=== PATIENT | female | born 1970 | race Caucasian/White ===

== ENCOUNTER 2024-01-25 12:28 | Emergency (ER) | payer OTHER, SELFPAY ==
--- NOTE | ~2024-01-25 | XR_ITS ---
EXAMINATION: XR chest 2V DATE: 01/25/2024 12:54 INDICATION: Cough. Back pain. TECHNIQUE: Frontal and lateral views of the chest were obtained. COMPARISON: None. FINDINGS: There is no pneumonia, pleural effusion, or pneumothorax. The heart size is normal. IMPRESSION: 1. No acute cardiopulmonary disease. Reviewed, dictated and finalized at location A. [employer]
[2024-01-25 12:41] VITALS: BP 132/93; PULSE 100; RESP 20; TEMP 36.7; O2SAT 99
--- NOTE | 2024-01-25 13:21 | ED.URI ---
HPI - URI/Sore Throat General Chief Complaint: Upper Respiratory Infection Stated Complaint: flu symptoms History of Present Illness HPI Narrative: Pt is a 53 y/o female, PMHx of RA, presents to with 10 day hx of URI symptoms that she is certain started with Influenza A, as her family all tested positive the same week. She has taken OTC Dayquil, Nyquil and Sudafed without much relief. She has continued to have fevers off and on, last fever was yesterday. She notes her cough is productive at times, nasal congestion persists but she is not producing much from her nose and she now has pain with coughing in the left flank/posterior chest wall. She became concerned she may be developing pneumonia, prompting her visit. She denies CP, orthopnea, SOB, abdominal pain, NVDC or urinary symptoms. She is not . Related Data Home Medications Medication Instructions Recorded Confirmed folic acid 1 mg tablet See Rx Instructions .Route .COMPLEX 01/25/24 01/25/24 golimumab 100 mg/mL subcutaneous See Rx Instructions .Route .COMPLEX 01/25/24 01/25/24 pen injector (Simponi) tramadol 50 mg tablet See Rx Instructions .Route 01/25/24 01/25/24 .COMPLEX PRN Pain zolpidem 12.5 mg tablet,extended 12.5 mg PO HS 01/25/24 01/25/24 release,multiphase Allergies Allergy/AdvReac Type Severity Reaction Status Date / Time etanercept [From Enbrel] Allergy Hives Verified 01/25/24 12:51 [email or web address] Allergy Hives Verified 01/25/24 12:49 [email or web address] Allergy Hives Verified 01/25/24 12:52 Review of Systems Constitutional: Comments: refer to HPI Respiratory: Comments: refer to HPI Musculoskeletal: Comments: refer to HPI Exam Const: General: healthy appearing, no acute distress and alert Nutritional Appearance: well nourished and obese Orientation/consciousness: patient oriented x3 Limitations: no limitations HENMT: Head: normal to inspection Ears: external ears normal and TM abnormal (TM's retracted bilaterally with serous pattern) Mouth: Yes Normal oral and palatal mucosa present, Yes lip normal and Yes moist mucous membranes Teeth and gingiva: dentition normal Throat: posterior oropharynx normal and uvula midline Eyes: Conjunctivae: conjunctivae normal Pupils: Equal, round and reactive pupils present EOM: EOMs intact bilaterally Direct Ophthalmoscopy: no photophobia Neck: Neck: normal visual inspection, no lymphadenopathy and no meningeal signs Resp: Effort & Inspection: normal respiratory effort Auscultation: clear to auscultation bilaterally Other: pt has harsh coughing, bark like with forced upper airway wheezing during coughing fit upon auscultation. No rales, rhonchi or wheezing otherwise noted Cardio: Rate: regular rate Rhythm: regular rhythm Back/Spine/Pelvis: Back: no CVA tenderness Other: pt has no ttp over the left posterior chest wall but does endorse some soreness to the left periscapular muscles. No crepitus, no subcutaneous emphysema noted Skin: General skin exam: normal color Rashes: no rashes Wounds: no wounds Neuro: General: patient oriented x3, moves all extremities, no meningeal signs, no focal motor deficits and CN's II-XI intact bilaterally Extrem: General: normal to inspection, no clubbing, cyanosis or edema and no pedal edema Course Course Emergency Course: cxr, unremarkable for acute findings. Suspect post viral cough versus early ABRS/bacterial bronchitis. Level of Care: Express Care Visit (43039) Vital Signs Vital signs: Vital Signs Temperature 36.7 C 01/25/24 12:41 Pulse Rate 100 01/25/24 12:41 Respiratory Rate 20 01/25/24 12:41 Blood Pressure 132/93 H 01/25/24 12:41 Pulse Oximetry 99 01/25/24 12:41 Oxygen Delivery Room Air 01/25/24 12:41 Temperature 36.7 C 01/25/24 12:41 Pulse Rate 100 01/25/24 12:41 Respiratory Rate 20 01/25/24 12:41 Blood Pressure 132/93 H 01/25/24 12:41 Pulse Oximetry 99 01/25/24 12:41 Oxygen Deli
== END 2024-01-25 13:40 | disposition home or self-care (01) ==
PROVIDERS: Emergency Provider Nurse Practitioner Family; PCP Family Medicine Sports Medicine
DX: J40 Bronchitis, not specified as acute or chronic (principal); J32.9 Chronic sinusitis, unspecified
CPT/HCPCS: 71046; 99213; G0463